=== PATIENT | female | born 1960 | race American Indian/Alaskan Native ===

== ENCOUNTER 2019-05-25 08:43 | Outpatient (CLI) | payer MEDICARE ==
[2019-05-25 09:36] LABS: Blood Urea Nitrogen 20 mg/dL (7-17)
--- NOTE | 2019-05-25 10:57 | Cat Scan Report ---
. CT ABDOMEN AND PELVIS WITH CONTRAST HISTORY: R10.9 FLANK PAIN/R31.9 HEMATURIA. COMPARISON: None. TECHNIQUE: CT images of the abdomen and pelvis were obtained following administration of intravenous contrast. All CT scans at this location are performed using CT dose reduction for ALARA by means of automated exposure control. CONTRAST: 100 ml of intravenous contrast administered. FINDINGS: Lungs/bones: The lung bases are clear. There is DJD in the cervical spine and pelvis with no acute o sseous abnormality identified. Abdomen/pelvis: On the noncontrast portion of the exam, there is a calcification measuring 4 mm near the course of the distal left ureter; however, there is no hydronephrosis or periureteral stranding. Otherwise no radiopaque urinary stone disease is identified. After the administration of contrast, t here are tiny simple bilateral renal cysts. On the delayed phase series, there is no collecting syste m filling defect. The liver, gallbladder, spleen, pancreas, adrenals, and proximal GI tract appear unremarkable. Urinary bladder is unremarkable. Uterus is surgically absent. There is colonic diverticulosis with in flammatory change along the mid sigmoid colon with no abscess or free air to suggest perforation. No bowel obstruction identified. The appendix and terminal ileum appear normal. IMPRESSION: 1. Acute uncomplicated sigmoid diverticulitis. 2. Tiny simple bilateral renal cysts with 4 mm stone along the course of the distal left ureter which is not clearly intraureteral and may represent a vascular phlebolith. No hydronephrosis or inflammat ory change associated with this finding. At least 3 separate attempts were made to contact Dr. Hathaway today for these findings. Since I was u nsuccessful, I located the patient, explaining the findings, and sent the patient back to Dr. Hathaway 's office with a copy of her study and the report so she may begin treatment with antibiotic therapy for diverticulitis. Signer Name: Thanh Salazar MD Signed: 05/25/2019 10:53 AM Workstation Name: [id number]
== END 2019-05-25 08:44 | disposition home or self-care (01) ==
LOC: CT 08:43
PROVIDERS: ATTEND Urology
DX: K57.32 Diverticulitis of large intestine without perforation or abscess without bleeding (principal); N28.1 Cyst of kidney, acquired
CPT/HCPCS: 36415; 74178; 82565; 84520; Q9967